=== PATIENT | female | born 1990 | race Caucasian/White ===

== ENCOUNTER 2021-03-27 16:38 | Outpatient (RCR) | payer OTHER, SELFPAY ==
[2020-12-30] MEDS: RHO(D) IMMUNE GLOBULIN 300 MCG/2 ML SYRINGE IM (12:27)
[2021-03-28] MEDS: RHO(D) IMMUNE GLOBULIN 300 MCG/2 ML SYRINGE IM (14:13)
== END 2021-03-29 23:59 | disposition home or self-care (01) ==
LOC: ANHLAB 16:38
PROVIDERS: PCP Nurse Practitioner; Referring Provider Advanced Practice Midwife; Visit Provider Obstetrics & Gynecology
DX: O26.859 Spotting complicating pregnancy, unspecified trimester (principal); Z29.13 Encounter for prophylactic Rho(D) immune globulin; O36.0190 Maternal care for anti-D [Rh] antibodies, unspecified trimester, not applicable or unspecified; Z3A.00 Weeks of gestation of pregnancy not specified
CPT/HCPCS: 36415; 85461; 90384; 96372; J2790

== ENCOUNTER 2021-04-08 15:56 | Inpatient (IN) | payer OTHER, SELFPAY ==
[2021-04-08] VITALS (75 sets, daily range): BP systolic 87–152; BP diastolic 48–99; PULSE 61–90; RESP 18; TEMP 36.7–36.8; O2SAT 90–100; BMI 31.8
--- NOTE | 2021-04-08 15:56 | LDADM ---
This patient, Rupa Vidal, was admitted to Labor/Delivery/Recovery 103 on 04/08/21 at 15:56. Plans for labor, pain management and were discussed with patient. Patient/family oriented to hospital policies and general routines including ID bracelet, bed and alarms, visiting hours, pain management, procedures, bathroom and other care routines, personal items, smoking policy, room service/diet and guest tray routines, security routines, and visiting hours. Patient/Family are encouraged to report perceived risks to care and to ask questions if they do not understand what they are told or what they should do. See OBIX for further documentation.
--- OUTSIDE RECORDS SUMMARY | 2021-04-08 16:02 | XMS_ITS | Encounter Summary ---
:1990 Author Care Team Providers Name Role Phone Unavailable Primary Care Provider Unavailable Kimberly Morel NP Primary Care Provider [phone] Reason for Visit OB visit OB [id number] EDC 04/14/2021 LMP 07/01/2020 Assessment and Plan Assessment Note Patient is 33___weeks . Dis cussed plan. 1. Routine care Discussion Note: None recorded.Patient educational handouts: No information available. Plan of Care Reminders Provider Appointments [facility] on or around [facility] arnold Enriquez, 09/11/2021 CNM Lab None ? ? recorded. Referral None ? ? recorded. Procedures None ? ? recorded. Surgeries None ? ? recorded. Imaging None ? ? recorded. Medications Name Start Date ? ? aspirin ? ? Medications Administered None recorded. Vitals Height Weight BMI Blood Pressure 5 ft 6 in 204 lbs 32.9 kg/m2 118/73 mm[Hg] Results Lab Results None recorded. Allergies Code Code System Name Reaction Severity Onset NKDA ? ? ? Problems Name Status Onset Date Source ?
--- OUTSIDE RECORDS SUMMARY | 2021-04-08 16:02 | XMS_ITS | Encounter Summary ---
:1990 Author Care Team Providers Name Role Phone Unavailable Primary Care Provider Unavailable Kimberly Morel NP Primary Care Provider [phone] Reason for Visit OB visit OB [id number] EDC 04/14/2021 LMP 07/01/2020 Assessment and Plan Assessment Note Patient is _38_weeks . Disc ussed plan. 1. Routine care Discussion Note: None recorded.Patient educational handouts: No information available. Plan of Care Reminders Provider Appointments I[facility] on or around [facility] arnold Enriquez, 09/11/2021 CNM Lab None ? ? recorded. Referral None ? ? recorded. Procedures None ? ? recorded. Surgeries None ? ? recorded. Imaging None ? ? recorded. Medications Name Start Date ? ? aspirin ? ? Medications Administered None recorded. Vitals Height Weight BMI Blood Pressure 5 ft 6 in 211 lbs 34.1 kg/m2 128/81 mm[Hg] Results Lab Results None recorded. Allergies Code Code System Name Reaction Severity Onset NKDA ? ? ? Problems Name Status Onset Date Source ?
--- OUTSIDE RECORDS SUMMARY | 2021-04-08 16:02 | XMS_ITS | Encounter Summary ---
:1990 Author Care Team Providers Name Role Phone Unavailable Primary Care Provider Unavailable Kimberly Morel NP Primary Care Provider [phone] Reason for Visit None recorded. Assessment and Plan 1. Pre-existing maternal disease complicating ? US, obstetric, follow-up Discussion Note: None recorded.Patient educational handouts: No information available. Plan of Care Reminders Provider Appointments Iop on or around [place] 09/11/2021 Lab None ? ? recorded. Referral None ? ? recorded. Procedures None ? ? recorded. Surgeries None ? ? recorded. Imaging US, 03/27/2021 [facility], Follow-up Medications Name Start Date ? ? aspirin ? ? Medications Administered None recorded. Vitals None recorded. Results Lab Results None recorded. Allergies Code Code System Name Reaction Severity Onset NKDA ? ? ? Problems Name Status Onset Date Source ? Active 10/27/2020 ? RhD Negative Active 12/22/2020 ? Procedures Date
--- OUTSIDE RECORDS SUMMARY | 2021-04-08 16:02 | XMS_ITS ---
:1990 Author Care Team Providers Name Role Phone Unavailable Primary Care Provider Unavailable MARQUISE PERERA NP Primary Care Provider [phone] Allergies Code Code System Name Reaction Severity Status Onset NKDA ? Medications Name Status Start Date Stop Date ? ? aspirin Active ? Not available azithromycin 250 mg tablet Completed ? 04/01 TK 2 TS PO ON DAY 1, THEN TK 1 T PO D FOR 4 DAYS Active ? Not available Problems Name Status Onset Date Source ? Active 10/27/2020 ? RhD Negative Active 12/22/2020 ? Procedures Date Name Performed by ? 03/14/2010 Appendectomy Information not avai lable 03/14/2010 Tonsilectomy/adenoids Information not av ailable 11/24/2020 US, Obstetric, 2Nd or 3Rd Trimester [facility] [address] [place] [address] ([address]) 12/22/2020 US, Obstetric, Follow-up [place] [address] [place] [address] ([address]) 12/29/2020 US, Obstetric, Limited [place] [address] [place] [address] ([address]) 03/27/2021 , Obstetric, Follow-up [place]
--- OUTSIDE RECORDS SUMMARY | 2021-04-08 16:02 | XMS_ITS | Encounter Summary ---
:1990 Author Care Team Providers Name Role Phone Unavailable Primary Care Provider Unavailable Kimberly Morel NP Primary Care Provider [phone] Reason for Visit OB visit Assessment and Plan Assessment Note Patient is ___weeks . Discu ssed plan. 1. Routine care Discussion Note: None recorded.Patient educational handouts: No information available. Plan of Care Reminders Provider Appointments I[facility] on or around [facility] arnold Enriquez, 09/11/2021 CNM Lab None ? ? recorded. Referral None ? ? recorded. Procedures None ? ? recorded. Surgeries None ? ? recorded. Imaging None ? ? recorded. Medications Name Start Date ? ? aspirin ? ? Medications Administered None recorded. Vitals Height Weight BMI Blood Pressure 5 ft 6 in 210 lbs 33.9 kg/m2 134/79 mm[Hg] Results Lab Results None recorded. Allergies Code Code System Name Reaction Severity Onset NKDA ? ? ? Problems Name Status Onset Date Source ? Active 10/27/2020
--- OUTSIDE RECORDS SUMMARY | 2021-04-08 16:02 | XMS_ITS | Encounter Summary ---
:1990 Author Care Team Providers Name Role Phone Unavailable Primary Care Provider Unavailable Kimberly Morel NP Primary Care Provider [phone] Reason for Visit OB visit 29w2d Assessment and Plan 1. Routine care Discussion Note: None recorded.Patient educational handouts: No information available. Plan of Care Reminders Provider Appointments I[facility] on or around [facility] arnold Enriquez, 09/11/2021 CNM Lab None ? ? recorded. Referral None ? ? recorded. Procedures None ? ? recorded. Surgeries None ? ? recorded. Imaging None ? ? recorded. Medications Name Start Date ? ? aspirin ? ? Medications Administered None recorded. Vitals Height Weight BMI Blood Pressure 5 ft 6 in 199 lbs 32.1 kg/m2 107/65 mm[Hg] Results Lab Results None recorded. Allergies Code Code System Name Reaction Severity Onset NKDA ? ? ? Problems Name Status Onset Date Source ? Active 10/27/2020 ? RhD Negative Active 12/22/2020 ? Procedures
--- OUTSIDE RECORDS SUMMARY | 2021-04-08 16:02 | XMS_ITS | Encounter Summary ---
:1990 Author Care Team Providers Name Role Phone Unavailable Primary Care Provider Unavailable Kimberly Morel NP Primary Care Provider [phone] Reason for Visit OB visit OB [id number] EDC 04/14/2021 LMP 07/01/2020 Assessment and Plan Assessment Note Patient is _31__weeks . Dis cussed plan. 1. Routine care Discussion Note: None recorded.Patient educational handouts: No information available. Plan of Care Reminders Provider Appointments I[facility] on or around [facility] arnold Enriquez, 09/11/2021 CNM Lab None ? ? recorded. Referral None ? ? recorded. Procedures None ? ? recorded. Surgeries None ? ? recorded. Imaging None ? ? recorded. Medications Name Start Date ? ? aspirin ? ? Medications Administered None recorded. Vitals Height Weight BMI Blood Pressure 5 ft 6 in 204 lbs 32.9 kg/m2 134/79 mm[Hg] Results Lab Results None recorded. Allergies Code Code System Name Reaction Severity Onset NKDA ? ? ? Problems Name Status Onset Date Source ?
--- OUTSIDE RECORDS SUMMARY | 2021-04-08 16:02 | XMS_ITS | Encounter Summary ---
:1990 Author Care Team Providers Name Role Phone Unavailable Primary Care Provider Unavailable Kimberly Morel NP Primary Care Provider [phone] Reason for Visit OB visit OB [id number] EDC 04/14/2021 LMP 07/02/2019 Assessment and Plan Assessment Note Patient is27 ___weeks . Dis cussed plan. 1. Routine care Discussion Note: None recorded.Patient educational handouts: No information available. Plan of Care Reminders Provider Appointments Iop Colpo on or around [facility] arnold Enriquez, 09/11/2021 CNM Lab None ? ? recorded. Referral None ? ? recorded. Procedures None ? ? recorded. Surgeries None ? ? recorded. Imaging None ? ? recorded. Medications Name Start Date ? ? aspirin ? ? Medications Administered None recorded. Vitals Height Weight BMI Blood Pressure 5 ft 6 in 200 lbs 32.3 kg/m2 119/69 mm[Hg] Results Lab Results None recorded. Allergies Code Code System Name Reaction Severity Onset NKDA ? ? ? Problems Name Status Onset Date Source ?
--- OUTSIDE RECORDS SUMMARY | 2021-04-08 16:02 | XMS_ITS | Encounter Summary ---
:1990 Author Care Team Providers Name Role Phone Unavailable Primary Care Provider Unavailable Kimberly Morel NP Primary Care Provider [phone] Reason for Visit OB visit 35WKS Assessment and Plan 1. Routine care Discussion Note: None recorded.Patient educational handouts: No information available. Plan of Care Reminders Provider Appointments Iop [facility]po on or around [facility] arnold Enriquez, 09/11/2021 CNM Lab None ? ? recorded. Referral None ? ? recorded. Procedures None ? ? recorded. Surgeries None ? ? recorded. Imaging None ? ? recorded. Medications Name Start Date ? ? aspirin ? ? Medications Administered None recorded. Vitals Height Weight BMI Blood Pressure 5 ft 6 in 205 lbs 33.1 kg/m2 124/77 mm[Hg] Results Lab Results None recorded. Allergies Code Code System Name Reaction Severity Onset NKDA ? ? ? Problems Name Status Onset Date Source ? Active 10/27/2020 ? RhD Negative Active 12/22/2020 ? Procedures
[2021-04-08 16:59] LABS: Basophils Percent Auto 0.5 % (0.2-1.2); Eosinophils Absolute Auto 0.1 K/mm3 (0-0.3); Eosinophils Percent Auto 1.2 % (0-4.4); Hematocrit 34.2 % (37.0-47.0); Immature Granulocyte Absolute 0.08 K/mm3 (0.00-0.031); Lymphocytes Absolute Auto 2.15 K/mm3 (0.9-3.2); Lymphocytes Percent Auto 26.7 % (18.3-44.2); Mean Corpuscular HGB Conc 32.2 g/dl (32-36); Mean Corpuscular Hemoglobin 27.8 pg (26-34); Mean Corpuscular Volume 86.6 fl (80-100); Monocytes Absolute Auto 0.6 K/mm3 (0.1-0.6); Monocytes Percent Auto 7.6 % (2.6-8.5); Neutrophils Absolute Auto 5.1 K/mm3 (1.3-6.7); Platelet Count Result 258 k/mm3 (150-375); Red Blood Count 3.95 M/mm3 (4.2-5.4); White Blood Count 8.1 K/mm3 (4.5-10.0)
[2021-04-08] MEDS: LACTATED RINGERS 1,000 ML 125 ML IV CONT ×2 (17:00→20:45)
[2021-04-08] MEDS: OXYTOCIN 30 UNITS/NS 500 ML 30 UNITS/500 ML BAG IV CONT (17:00)
--- NOTE | 2021-04-08 18:07 | WPDOBADMIT ---
Obstetrics - Admit Note Admission Note: record reviewed. No pertinent additions to the history and/or any subsequent changes in the physical findings that are not consistent with the expected course of the were found. EIOL, 39 weeks gestation, gbs negative SVE 2/60/-2, AROM large amount of clear, odorless fluid, anticipate vaginal delivery Additions to the history and/or subsequent changes in the physical findings follow. None.
--- NOTE | 2021-04-08 20:57 | WPDANESEPPF ---
Anes - Initial Pre Proc Eval Procedure: labor epidural Date/Time: 04/08/21 20:57 Surgeon: Dianna Griffin MD Pre Op Diagnosis: labor pain Pre Op Diagnosis: IOL Patient Data Age: 30 Gender: F Height: 1.73 m Weight: 95 kg Last Vital Signs Temp 36.8 C 04/08/21 18:22 Pulse 77 04/08/21 20:56 Resp 18 04/08/21 18:22 BP 152/99 H 04/08/21 20:56 Pulse Ox 100 04/08/21 20:53 Allergies Allergy/AdvReac Type Severity Reaction Status Date / Time No Known Drug Allergies Allergy Mild Verified 06/14/17 13:39 Home Medications Medication Instructions Recorded Confirmed Type prenat.vits,gris,uee-vcld-dwveh 1 tablet PO DAILY 04/08/21 04/08/21 History [ Vitamin] Laboratory Tests 04/08/21 04/08/21 04/08/21 16:44 16:44 16:44 WBC 8.1 K/mm3 K/mm3 (4.5-10.0) RBC 3.95 M/mm3 L M/mm3 (4.2-5.4) Hgb 11.0 g/dL L g/dL (12.0-15.0) Hct 34.2 % L % (37.0-47.0) MCV 86.6 fl fl (80-100) MCH 27.8 pg pg (26-34) MCHC 32.2 g/dl g/dl (32-36) RDW 14.0 % % (11.5-14.5) Plt Count 258 k/mm3 k/mm3 (150-375) MPV 11.0 fl H fl (7.4-10.4) Immature Gran % (Auto) 1.0 % H % (0-0.5) Neut % (Auto) 63.0 % % (45.5-73.1) Lymph % (Auto) 26.7 % % (18.3-44.2) [place] % (Auto) 7.6 % % (2.6-8.5) Eos % (Auto) 1.2 % % (0-4.4) Baso % (Auto) 0.5 % % (0.2-1.2) Lymph # (Auto) 2.15 K/mm3 K/mm3 (0.9-3.2) [place] # (Auto) 0.6 K/mm3 K/mm3 (0.1-0.6) Eos # (Auto) 0.1 K/mm3 K/mm3 (0-0.3) Baso # (Auto) 0.0 K/mm3 K/mm3 (0.0-0.1) Abs Immat Gran (auto) 0.08 K/mm3 H K/mm3 (0.00-0.031) Absolute Neuts (auto) 5.1 K/mm3 K/mm3 (1.3-6.7) Absolute Nucleated RBC 0.0 K/mm3 K/mm3 (0.0-0.012) Nucleated RBC % 0.0 % % (0.0-0.2) RPR Pending Blood Type O Negative Antibody Screen Positive Antibody Identification Passive Due to RH Imm Glob Antigen Identification Cancelled ERROL, IgG Interpret Not Performed ERROL, Poly Interpret Negative ERROL, Complement Interp Not Performed Patient hx anesthesia problems: none Family hx anesthesia problems: none Results Review: All pre-operative results and documents have been reviewed as part of the pre-operative evaluation. [facility] Family History Family History (Updated 03/31/21 @ 14:41 by Geovany Cloud RN) Father Hypertension Social History Social History Smoking status: Former smoker Tobacco type: cigarettes Alcohol intake: current Substance use: never Spiritual care concerns: No Anes - Eval Final PreProcedure Day of Procedure 04/08/21 20:57 Patient weight: obese ASA classification: II Anesthesia type and monitoring: regional epidural and standard monitoring Results Review: All pre-operative results and documents have been reviewed as part of the pre-operative evaluation. Informed Consent: The patient's anesthetic plan and its attendant risks and benefits were discussed with the patient/family/POA. Questions were solicited and answers provided to the satisfaction of the patient/family/POA.
[2021-04-09] VITALS (25 sets, daily range): BP systolic 109–153; BP diastolic 64–102; PULSE 68–115; RESP 16–18; TEMP 36.4–37.1; O2SAT 98–100
--- NOTE | 2021-04-09 01:04 | PM.OBPRVD ---
OB - Delivery Note Procedure Delivery date: 04/09/21 Procedure: vaginal delivery Intrapartal events: None Induction method: AROM and per pitocin protocol Delivery monitor: external FHT, external uterine and internal uterine Route of delivery: Episiotomy description: None Laceration Description: None Specimen: No Quantitative Blood Loss (ml): 60 Anesthesia type: Epidural Disposition: floor [place] Baby Date of : 04/09/21 Time of : 00:49 Weeks of gestation at delivery: 39 Infant gender: Male Weight (pounds): 8 Weight (ounces): 7 presentation: vertex position: Left Occiput Transverse Placenta delivery description: Spontaneous cord vessel description: 3 Vessels, Clamped/Cut and Delayed Cord Clamping score one minute: 8 score five minutes: 9 Narrative: mother and baby skin to skin in stable condition
[2021-04-09] MEDS: OXYTOCIN 30 UNITS/NS 500 ML 30 UNITS/500 ML BAG 125 UNITS IV CONT (01:19)
--- NOTE | 2021-04-09 03:21 | OBPPTRN ---
Patient transferred to post room #281 via W/C. Support person present. Oriented to unit, room, information board, rooming in, admission packet and security measures. Patient verbalizes understanding.
[2021-04-09] MEDS: IBUPROFEN 600 MG TABLET PO ×3 (05:49→23:45)
[2021-04-09 07:12] LABS: Rapid Plasma Reagin Non-Reactive (NonReactive)
[2021-04-09] MEDS: MULTIVIT/MIN/PREN/FOL AC/IRON TABLET 1 TAB PO (08:10)
[2021-04-09] MEDS: DOCUSATE SODIUM 100 MG CAPSULE PO ×2 (08:10→18:01)
[2021-04-09] MEDS: ACETAMINOPHEN 325 MG TABLET 650 MG PO ×2 (08:10→18:00)
--- NOTE | 2021-04-09 09:22 | PC.NURSE ---
Addendum entered by José Miguel Morin RN 04/09/21 09:26: actual time of introductions was at 0730 Original Note: PT introductions made and plan of care discussed per post , pain management, , daily care activities. PT received such instructions per one to one discussion, mom baby care guide and demonstrations this shift. PT and spouse both recipients of such instructions and no barriers to learning identified. PT verbalized understanding of such instructions.
--- NOTE | 2021-04-09 13:28 | PC.NURSE ---
0825 - Introductions were made, baby back with mother after assessments and mother led the discussion of her desires to feeding her baby. Mom is concerned with milk supply. Discussed protecting and production of human milk. Reviewed handwashing to prevent infection before and after taking care of her baby. Teaching parents stimulating and place skin to skin to eat. Mom demonstrated unwrapping, undressing and placing skin to skin with stimulation. Mother verbalizes she has been able to latch infant once downstairs . Discussed how to watch for early feeding cues, place infant skin to skin, then feeding baby when is ready or every 2-3 hours. Reviewed positioning/alignment with the use of the visuals in the mom and baby guide. 0855 - Encouraged mother with infant to the right breast in football position using nipple to nose with asymmetrical 140-degree latch. She denies any nipple discomfort after a few teaching attempts to obtain an effective latch. Reviewed there is to be no pain with , how to detach infant from the breast, visuals to watch for to confirm effective . Reviewed effective latching with resources tool and visual hand-out. Nipple tenderness is relieved with improving positioning and effective latching. Educated mom of the use of warm, wet compress to nipples and air dry for improved comfort. was able to maintain effective latch. Mother has verbalized understanding watching for feeding cues for responsive feeding or how to stimulate to initiate from the start of the last feeding. Mother voiced understanding to feed when she sees feeding cues, 8-12 times in 24 hours approximately every 2-3 hours from the start of the last feeding or she has discomfort with nursing. Reported to primary RN.
[2021-04-10 05:22] LABS: Hematocrit 28.9 % (37.0-47.0); Hemoglobin 9.3 g/dL (12.0-15.0)
--- NOTE | 2021-04-10 07:00 | PC.NURSE ---
PT introductions made and plan of care discussed per post , pain management, , daily care activities and pending discharge to home. PT received such instructions per one to one discussion, mom baby care guide and demonstrations this shift. PT and spouse both recipients of such instructions and no barriers to learning identified. PT verbalized understanding of such instructions.
--- NOTE | 2021-04-10 07:19 | PM.OBPNVD ---
OB - PN: Subj Subjective Date/time seen: 04/10/21 07:19 Patient comments: no complaints baby status: doing well OB - PN: Obj Data Labs CBC & Chem 7: 04/10/21 04:14 Labs: Laboratory Results - last 24 hr 04/10/21 04:14 Hgb 9.3 L Hct 28.9 L OB - PN A/P Plan day: 1 Plan: routine care and discharge home Time Spent With Patient Time: Total time spent is greater than 50% in coordination of care (as documented) at patient's floor/unit and/or counseling patient: Review of Systems Review of Systems: All systems reviewed & are unremarkable except as noted in HPI and below Exam Const: General: cooperative, healthy appearing and comfortable
[2021-04-10 08:05] VITALS: BP 127/72; PULSE 63; RESP 18; TEMP 36.3; O2SAT 100
[2021-04-10 09:00] VITALS: PULSE 63; RESP 18; O2SAT 100
--- NOTE | 2021-04-10 10:33 | PC.NURSE ---
0835 - Reintroductions were made and mother led the conversation with regards to her experience and plan for feeding her baby. Mom is attempting baby to breast and states is hurts. Reviewed how to detach from the breast, positioning, effective latching watching for asymmetry (off center latch) and swallowing. Reminded parents to use good handwashing to prevent infection. has had adequate feedings in the past 24 hours and meets the outcomes for weight, output and jaundice. Mother states she feels confident to continue working with infant to breast/pumping/supplementing her infant at home. Encouraged mom to placed skin to skin to start responsive feeding when she visualizes feeding cue or stimulate to eat. Mom voiced understanding of calling for assistance if baby doesn't latch or there is discomfort with . Reviewed production of human milk, transition of milk, signs of adequate intake and engorgement prevention/relief and when to call the care provider, community resources and outpatient services as listed in the mom and baby guide/[facility] website. Reinforced watching for feeding cues with responsive feeding and how to stimulate to initiate feeding three hours from the start of the last feeding. Mom asked if a nipple shield would help with the latch and risk and benefits were discussed. Mom encouraged with positioning and latching to protect the tender nipples. Mother voiced understanding of information shared. Reported to primary RN. 1045 - Primary RN states mom had an unsuccessful attempt around 0840. Mom is in the restroom, dad is holding infant showing feeding cues, encouraged skin to skin, and calling for latch assistance if needed. Mom voiced understanding.
[2021-04-10] MEDS: MULTIVIT/MIN/PREN/FOL AC/IRON TABLET 1 TAB PO (11:58)
[2021-04-10] MEDS: IBUPROFEN 600 MG TABLET PO (11:58)
[2021-04-10] MEDS: DOCUSATE SODIUM 100 MG CAPSULE PO (11:59)
[2021-04-10] MEDS: POLYSACCHARIDE IRON COMPLEX 150 MG CAPSULE PO (11:59)
--- NOTE | 2021-04-10 12:00 | PC.NURSE ---
Pt received discharge instructions per protocol and verbalized understanding of such care.
--- NOTE | 2021-04-10 12:40 | PC.NURSE ---
PT discharged to home ambulatory accompanied by spouse and and taken to waiting car. Follow up appts confirmed
[2021-04-11 09:54] VITALS: BP 129/65; PULSE 73; RESP 16; TEMP 37.1; O2SAT 99
--- NOTE | 2021-04-15 07:32 | PM.OBTRLD ---
OB - Triage/Final Diagnosis Visit Information Date of evaluation: 04/09/21 Reason for evaluation: threatened labor Comments/Additional reasons for admission: I have assessed the risk for this patient, Rupa Vidal, and determined that she would benefit from observation care. Evaluation Laboratory results: Laboratory Tests 04/08/21 04/08/21 04/08/21 16:44 16:44 16:44 WBC 8.1 RBC 3.95 L Hgb 11.0 L Hct 34.2 L MCV 86.6 MCH 27.8 MCHC 32.2 RDW 14.0 Plt Count 258 MPV 11.0 H Immature Gran % (Auto) 1.0 H Neut % (Auto) 63.0 Lymph % (Auto) 26.7 [place] % (Auto) 7.6 Eos % (Auto) 1.2 Baso % (Auto) 0.5 Lymph # (Auto) 2.15 [place] # (Auto) 0.6 Eos # (Auto) 0.1 Baso # (Auto) 0.0 Abs Immat Gran (auto) 0.08 H Absolute Neuts (auto) 5.1 Absolute Nucleated RBC 0.0 Nucleated RBC % 0.0 RPR Non-reactive Blood Type O Negative Antibody Screen Positive Antibody Identification Passive Due to RH Imm Glob Antigen Identification Cancelled ERROL, IgG Interpret Not Performed ERROL, Poly Interpret Negative ERROL, Complement Interp Not Performed 04/10/21 04:14 WBC RBC Hgb 9.3 L Hct 28.9 L MCV MCH MCHC RDW Plt Count MPV Immature Gran % (Auto) Neut % (Auto) Lymph % (Auto) [place] % (Auto) Eos % (Auto) Baso % (Auto) Lymph # (Auto) [place] # (Auto) Eos # (Auto) Baso # (Auto) Abs Immat Gran (auto) Absolute Neuts (auto) Absolute Nucleated RBC Nucleated RBC % RPR Blood Type Antibody Screen Antibody Identification Antigen Identification ERROL, IgG Interpret ERROL, Poly Interpret ERROL, Complement Interp
--- NOTE | 2021-04-19 15:54 | PM.OBDSVD ---
DS: Admitting Diagnosis Discharge Date 04/10/21 Admitting Diagnosis iol OB - DS: Summary OB Procedures : None OB Procedures Intrapartum: Spontaneous Vag Delivery OB Procedures: : None Time Spent with Patient Time attestation: Total time spent providing and/or coordinating discharge services: Discharge Plan Discharge Attending physician on discharge: Dianna Griffin Consulting providers: Gabbie Devine ; Nitish Ga Discharging Clinician: Gabbie Devine Patient Disposition: Home, Self-Care Activity: pelvic rest Diet: regular Discharge Instructions: Education: Mom and Baby Guide Given to: Mother Follow-Up: Call your delivering provider's office for an appointment to be seen in: 6 Weeks Mom and baby should come to the [facility] for the follow-up appointment. Appointment Date/Time: April 11, 2021 at 10:00 am What to expect at your follow-up visit: Blood Pressure Check Call [phone] if you are unable to keep your appointment time. BREAST CARE: * Wear a snug supportive bra. * For engorgement discomfort: Breast Feeding: * Apply warm moist washcloths * Express milk as needed to relieve engorgement * Wear loose clothing Bottle Feeding: * May apply ice packs * For sore nipples: * Identify correct latch-on * Apply warm moist washcloths before and after nursing * Air dry nipples after nursing * May apply Lansinoh cream to nipples PERINEAL CARE: * Until bleeding stops, use your mer bottle after urinating * Change your pad frequently throughout the day * You may take sitz baths several times a day (fill your bathtub with warm water and soak for 20 minutes.) Do NOT bathe in the water * No tub baths until seen by your physician - You may shower ACTIVITY: * Rest as much as possible. * Do not exercise or lift anything heavier than your baby (such as laundry or other children.) * Avoid stairs or driving as much as possible. * Do not put anything into the vagina. No douching, tampons, or sexual activity until seen by physician. NOTIFY PHYSICIAN IF YOU HAVE ANY QUESTIONS OR IF ANY OF THE FOLLOWING SYMPTOMS OCCUR: * If your perineum becomes red, swollen, or more painful than what you have experienced in the hospital. * If your vaginal bleeding becomes foul smelling. * If your vaginal bleeding becomes more heavy than a period or if your bleeding changes from pink to bright red. However, you may pass an occasional walnut-sized clot once or twice for the first week . * If you experience a sharp, shooting pain in you calves. * If you discover a hard, reddened area on your breast or if you experience flu-like symptoms. *If you have a fever of 100.4 or greater DIET: * Eat regular, well-balanced meals. * Drink plenty of fluids daily. If , drink to thirst. Patient Instructions: Antibiotic Form Stand Alone Forms: General Discharge Information Follow-up/Referrals: Gabbie Devine CNM [Certified Nurse Supervisor Quality Control] - 4 Weeks Discharge Medications: Continued prenat.vits,gris,[id number]-qlnds Tablet 1 tablet PO DAILY RF: 0 Date of admission: 04/08/21 15:56 Primary Care Provider: AdrielKimberly Shaikh Admitting Provider: Dianna Griffin Attending physician on admission: Dianna Griffin Condition: Stable
== END 2021-04-10 12:40 | disposition home or self-care (01) | DRG 807 ==
LOC: ANHLDR 15:59 → ANHOB2 04-09 04:50
PROVIDERS: Advanced Practice Midwife; Admitting Provider Obstetrics & Gynecology; PCP Nurse Practitioner; Visit Provider Obstetrics & Gynecology
DX: O76 Abnormality in fetal heart rate and rhythm complicating labor and delivery (principal); Z37.0 Single live birth; Z3A.39 39 weeks gestation of pregnancy
CPT/HCPCS: 36415; 85014; 85018; 85025; 86592; 86850; 86880; 86900; 86901; 86902; A9270; J2590; J2795; J7120

== ENCOUNTER 2022-02-01 15:26 | Emergency (ER) | payer OTHER, SELFPAY ==
[2022-02-01] VITALS (11 sets, daily range): BP systolic 122–161; BP diastolic 57–81; PULSE 63–79; RESP 15–20; TEMP 36.6; O2SAT 94–100
--- NOTE | ~2022-02-01 | CT_ITS ---
EXAMINATION: CT abdomen pelvis w con DATE: 02/01/2022 20:00 INDICATION: RUQ pain TECHNIQUE: Computed tomography (CT) of the abdomen and pelvis was performed with 100 mL Omnipaque-350 intravenous contrast. Automated exposure control and iterative reconstruction technique were employe d. The dose-length product was 572.40 mGy-cm. COMPARISON: 02/23/2009. FINDINGS: Lower thorax: Unremarkable Liver: Normal. Biliary/Gallbladder: Gallbladder is normal. No bile duct dilation. Pancreas: No mass or duct dilation. Spleen: Normal. Adrenals:No mass. Kidneys: No mass, stone, or hydronephrosis. GI tract: No small or large bowel dilation. Appendix not visualized. Mesentery/Peritoneum: No ascites, mass, or free air. Retroperitoneum: No mass. Pelvis: Pelvic organs are within normal limits. Soft Tissues: Soft tissues and body wall unremarkable. Bones: No acute osseous finding. IMPRESSION: No acute abdominopelvic process detected. Reviewed, dictated and finalized at location K. 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
[2022-02-01] MEDS: SODIUM CHLORIDE 0.9% IV 1,000 ML 999 ML IV CONT (18:51)
[2022-02-01] MEDS: DICYCLOMINE HCL INJ 20 MG/2 ML VIAL IM (18:51)
[2022-02-01] MEDS: ONDANSETRON INJ 4 MG/2 ML VIAL IV PUSH (18:51)
[2022-02-01 19:11] LABS: Basophils Absolute Auto 0.1 K/mm3 (0.0-0.1); Basophils Percent Auto 0.7 % (0.2-1.2); Eosinophils Absolute Auto 0.6 K/mm3 (0-0.3); Eosinophils Percent Auto 7.7 % (0-4.4); Hematocrit 39.6 % (37.0-47.0); Hemoglobin 12.7 g/dL (12.0-15.0); Immature Granulocyte Absolute 0.01 K/mm3 (0.00-0.031); Immature Granulocyte Percent A 0.1 % (0-0.5); Lymphocytes Absolute Auto 2.45 K/mm3 (0.9-3.2); Lymphocytes Percent Auto 34.5 % (18.3-44.2); Mean Corpuscular HGB Conc 32.1 g/dl (32-36); Mean Corpuscular Hemoglobin 29.9 pg (26-34); Mean Corpuscular Volume 93.2 fl (80-100); Mean Platelet Volume 10.1 fl (7.4-10.4); Monocytes Absolute Auto 0.6 K/mm3 (0.1-0.6); Monocytes Percent Auto 7.7 % (2.6-8.5); Neutrophils Absolute Auto 3.5 K/mm3 (1.3-6.7); Neutrophils Percent Auto 49.3 % (45.5-73.1); Platelet Count Result 213 k/mm3 (150-375); Red Blood Count 4.25 M/mm3 (4.2-5.4); Red Cell Distribution Width 14.3 % (11.5-14.5); White Blood Count 7.1 K/mm3 (4.5-10.0)
[2022-02-01 19:13] LABS: Appearance Urine Clear (Clear); Bilirubin Urine Negative (Negative); Blood Urine 2+ (Negative); Color Urine Yellow (Yellow); Glucose Urine UA Negative (Negative); Ketones Urine Negative (Negative); Leukocyte Esterase Ur Negative LEU/UL (Negative); Nitrate Urine Negative (Negative); Protein Urine Negative (Negative); Urobilinogen Urine 0.2 mg/dL (<2.0); pH Urine 5.5 (5.0-9.0)
[2022-02-01 19:23] LABS: Mucus Urine Rare /lpf; RBC Urine 21-50 /hpf (0-2); Squamous Epithelial Cell Urine Rare /hpf (Few); WBC Urine 0-3 /hpf
[2022-02-01 19:25] LABS: Add Urine Microscopic? YES
[2022-02-01 19:37] LABS: Alanine Aminotransferase 20 U/L (6-35); Alkaline Phosphatase 49 U/L (38-126); Anion Gap 9 mmol/L (8-16); Aspartate Amino Transferase 26 U/L (14-36); Bilirubin,Total 0.5 mg/dL (0.2-1.3); Blood Urea Nitrogen 17 mg/dL (7-17); Calcium 8.5 mg/dL (8.4-10.2); Carbon Dioxide 24 mmol/L (22-30); Chloride 105 mmol/L (98-107); Estimated CRCL calculation 83 ml/min; Estimated Glomerular Filt Rate > 60; Glucose 116 mg/dL (65-110); Lipase 149 U/L (23-300); Potassium 3.5 mmol/L (3.4-5.0); Sodium 138 mmol/L (137-145)
--- NOTE | 2022-02-01 20:15 | ED.ABDPAIN ---
HPI - Abdominal Pain General Chief Complaint: Abdominal Pain Stated Complaint: abd pain Time Seen by Provider: 02/01/22 18:35 History of Present Illness HPI narrative: 31-year-old female presents to the emergency room for evaluation of right upper quadrant abdominal pain. Patient states pain is associated with nausea and vomiting began 3 days ago. Patient denies fever. patient states pain radiates into her right lower quadrant. Denies back pain. Denies diarrhea or constipation. History of appendectomy. States began her menstrual cycle 2 days ago. Related Data Home Medications Medication Instructions Recorded Confirmed prenat.vits,gris,ori-[id number] 1 tablet PO DAILY 04/08/21 04/08/21 Allergies Allergy/AdvReac Type Severity Reaction Status Date / Time No Known Drug Allergies Allergy Mild Other Verified 02/01/22 18:50 Review of Systems Review of Systems: CONSTITUTIONAL: Denies fever, chills, or sweats. EYES: Denies visual changes, redness, or discharge. ENT: Denies rhinorrhea, congestion, sore throat, or otalgia. CARDIOVASCULAR: Denies chest pain, palpitations, or edema. RESPIRATORY: Denies cough or dyspnea. GASTROINTESTINAL: Reports right upper quadrant pain, nausea, GENITOURINARY: Denies dysuria or hematuria. SKIN: Denies rash or itching. MUSCULOSKELETAL: Denies back pain, joint pain, or myalgia. NEUROLOGIC: Denies headache, numbness, dizziness, or weakness. PSYCHIATRIC: Denies anxiety or depression. [facility] Family History Family History Father Hypertension Social History Social History Smoking status: Former smoker Tobacco type: cigarettes Alcohol intake: current Substance use: never Spiritual care concerns: No Exam Narrative: GENERAL: Well-appearing, well-nourished, no physical limitations, and in no acute distress. HEAD: Normocephalic, atraumatic. EYES: Conjunctivae normal, PERRLA and EOMI. CHEST: Clear to auscultation. No respiratory distress. No wheezes rales or rhonchi. HEART: Regular rate and rhythm. No murmur heard. Normal peripheral pulses. ABDOMEN: Soft, RUQ tenderness, nondistended, normal active bowel sounds. BACK: No CVA tenderness EXTREMITIES: Normal range of motion. No edema. No clubbing or cyanosis SKIN: Warm, dry, no rash. No noted wounds NEURO: No focal deficits. Alert and oriented x3. MAEW. CN's II-XI intact bilaterally, normal gait PSYCH: Cooperative. Normal mood and affect. Course Vital Signs Vital signs: Vital Signs Temperature 36.6 C 02/01/22 15:52 Pulse Rate 79 02/01/22 15:52 Respiratory Rate 16 02/01/22 15:52 Blood Pressure 161/57 H 02/01/22 15:52 Pulse Oximetry 99 02/01/22 15:52 Oxygen Delivery Room Air 02/01/22 15:52 Temperature 36.6 C 02/01/22 15:52 Pulse Rate 78 02/01/22 19:00 Respiratory Rate 18 02/01/22 19:00 Blood Pressure 131/81 02/01/22 19:00 Pulse Oximetry 94 02/01/22 19:00 Oxygen Delivery Room Air 02/01/22 15:52 MDM - Abdominal Pain Lab Data Result diagrams: 02/01/22 18:47 02/01/22 19:23 Labs: Lab Results 02/01/22 02/01/22 02/01/22 Range/Units 18:47 18:47 19:23 WBC 7.1 (4.5-10.0) K/mm3 RBC 4.25 (4.2-5.4) M/mm3 Hgb 12.7 D (12.0-15.0) g/dL Hct 39.6 (37.0-47.0) % MCV 93.2 (80-100) fl MCH 29.9 (26-34) pg MCHC 32.1 (32-36) g/dl RDW 14.3 (11.5-14.5) % Plt Count 213 (150-375) k/mm3 MPV 10.1 (7.4-10.4) fl Immature Gran % (Auto) 0.1 (0-0.5) % Neut % (Auto) 49.3 (45.5-73.1) % Lymph % (Auto) 34.5 (18.3-44.2) % Sunflower % (Auto) 7.7 (2.6-8.5) % Eos % (Auto) 7.7 H (0-4.4) % Baso % (Auto) 0.7 (0.2-1.2) % Lymph # (Auto) 2.45 (0.9-3.2) K/mm3 Sunflower # (Auto) 0.6 (0.1-0.6) K/mm3 Eos # (Auto) 0.6 H (0-0.3) K/mm3 Baso # (Auto) 0.1 (0.0-0.1) K/mm3 Abs Immat Gran (auto) 0
== END 2022-02-01 21:25 | disposition home or self-care (01) ==
PROVIDERS: Emergency Medicine; Emergency Provider Nurse Practitioner Family; PCP Nurse Practitioner
DX: R10.11 Right upper quadrant pain (principal); Z87.891 Personal history of nicotine dependence
CPT/HCPCS: 36415; 74177; 80053; 81001; 81025; 83690; 85025; 96361; 96372; 96374; 99284; J0500; J2405; J7030; Q9967

== ENCOUNTER 2022-03-05 07:57 | Outpatient (CLI) | payer OTHER, SELFPAY ==
--- NOTE | ~2022-03-05 | US_ITS ---
EXAMINATION: US abdomen complete DATE: 03/05/2022 08:19 INDICATION: Gallstones. TECHNIQUE: Multiple grayscale and Doppler ultrasound images of the abdomen were obtained. COMPARISON: CT abdomen and pelvis 02/01/2022 FINDINGS: Abdominal aorta is normal in caliber. The visualized portions of the head, body, and tail o f the pancreas are normal. The liver is normal without focal lesion. No liver surface nodularity. The re is normal flow in main portal vein. The gallbladder is normal in size. No gallstones or gallbladde r wall thickening. There was no sonographic Soto sign. The common duct is normal and measures 3 mm. Inferior vena cava is normal. The spleen is normal in size. The kidneys are normal in size. IMPRESSION: 1. Normal complete abdomen ultrasound. Reviewed, dictated and finalized at location A. GER CHEMISTRY
== END 2022-03-05 07:58 ==
LOC: MICIMG 07:58
PROVIDERS: PCP Chiropractor; Visit Provider Chiropractor
DX: K80.20 Calculus of gallbladder without cholecystitis without obstruction (principal)
CPT/HCPCS: 76700